=== PATIENT | female | born 1995 | race Hispanic/Latino ===

== ENCOUNTER 2018-11-17 18:43 | Emergency (ER) | payer OTHER ==
[~2018-11-17] VITALS: Ht 149.9 cm; Wt 60.1 kg
[2018-11-17] MEDS ORDERED: prenatal vit (18:52)
[2018-11-17] MEDS ORDERED: LIDOCAINE 1% MDV 20ML VIAL IM ONE (20:45)
[2018-11-17 22:01] VITALS: BP 118/71
--- NOTE | 2018-11-18 08:53 | REP ---
Left knee two views including AP and patellar sunrise projections : There is no fracture or dislocation. Mineralization and joint spaces are normal. There are no calcifications or foreign bodies. Impression: Negative two-view left knee . Electronically Signed by Sonny Chapin MD 11/18/2018 08:44 A
== END 2018-11-17 22:03 | disposition home or self-care (01) ==
LOC: M ED 18:43
DX: S61.412A Laceration without foreign body of left hand, initial encounter (principal); S80.02XA Contusion of left knee, initial encounter; W00.9XXA Unspecified fall due to ice and snow, initial encounter; Y92.410 Unspecified street and highway as the place of occurrence of the external cause; Y93.9 Activity, unspecified; Y99.9 Unspecified external cause status; Z3A.01 Less than 8 weeks gestation of pregnancy; Z79.899 Other long term (current) drug therapy

== ENCOUNTER 2018-11-28 15:38 | Emergency (ER) | payer OTHER ==
[~2018-11-28] VITALS: Ht 149.9 cm; Wt 56.8 kg
[2018-11-28 15:38] VITALS: BP 117/60
[~2018-11-28 15:38] MED LIST: prenatal vit
== END 2018-11-28 16:21 | disposition home or self-care (01) ==
LOC: M ED 15:38
DX: Z48.02 Encounter for removal of sutures (principal)